=== PATIENT | male | born 1975 | race Caucasian/White ===

== ENCOUNTER 2024-07-14 11:46 | Day surgery (SDC) | payer BC ==
[~2024-07-14 11:46] MED LIST: Midazolam 1 MG/ML 2 ML SDV ONE; Propofol 200 MG/20 ML SDV ONE
[2024-07-14] MEDS ORDERED: Sodium Chloride 0.9% 10 ML Syringe FLUSH PRN (12:00)
[2024-07-14] MEDS: Lactated Ringers 1,000 ML IV SCH (12:30)
== END 2024-07-14 13:43 | disposition home or self-care (01) ==
LOC: LL.SDS 11:46
PROVIDERS: ATTEND Surgery
DX: Z12.11 Encounter for screening for malignant neoplasm of colon (principal); E78.5 Hyperlipidemia, unspecified; I77.819 Aortic ectasia, unspecified site; Z79.899 Other long term (current) drug therapy
CPT/HCPCS: J2250; J2704; J7120